=== PATIENT | female | born 1940 | race Caucasian/White ===

== ENCOUNTER 2023-04-21 16:48 | Emergency (ER) | payer OTHER ==
[~2023-04-21] VITALS: Ht 165.1 cm; Wt 82.0 kg
[2023-04-21 20:40] LABS: Basophils # (auto) 0.1 10 ^3/uL (0-0.2); Eosinophils # (auto) 0.1 10 ^3/uL (0-0.8); Eosinophils % (auto) 0.7 % (0.0-7.0); Hematocrit 43.1 % (36.0-46.0); Lymphocytes # (auto) 1.3 10 ^3/uL (0.4-5.4); Lymphocytes % (auto) 15.4 % (10.0-50.0); Mean Corpuscular Hgb Conc. 32.5 g/dL (32.0-36.0); Mean Corpuscular Volume 92.2 fL (80.0-100.0); Monocytes # (auto) 0.9 10 ^3/uL (0-1.3); Monocytes % (auto) 10.9 % (0.0-12.0); Neutrophils # (auto) 6.2 10 ^3/uL (1.6-8.6); Nucleated Red Blood Cells % 0.1 %; Red Blood Cells 4.68 10^6/uL (4.0-5.20); Red Cell Distribution Width 15.5 % (11.8-14.3); White Blood Cell 8.7 10^3/uL (4.4-10.8)
[2023-04-21 20:43] LABS: Chloride 110 mmol/L (98-107); Potassium 3.7 mmol/L (3.5-5.1); Sodium 139 mmol/L (136-145)
[2023-04-21 20:44] LABS: Anion Gap 7 (5-15); Carbon Dioxide 22 mmol/L (20-30)
[2023-04-21 20:49] LABS: Glucose 94 mg/dL (74-106)
[2023-04-21 21:11] LABS: BUN/Creatinine Ratio 10.3 (10.0-20.0); Blood Urea Nitrogen 10 mg/dL (9-23)
[2023-04-21] MEDS: IOHEXOL 350 MG/ML 100ML IJ ONE (21:15)
[2023-04-21] MEDS ORDERED: DIPH2.5T73 PO (21:18)
[2023-04-21] MEDS: SODIUM CHLORIDE 0.9% 500 ML IV ONE (21:19)
[2023-04-21 21:36] VITALS: BP 136/78; TEMP 97.8
[2023-04-21 21:37] VITALS: PULSE 96; RESP 16; O2SAT 97
== END 2023-04-21 22:15 | disposition home or self-care (01) ==
LOC: ER 16:48 → EDBD 16:48 → ER 22:15
DX: R19.7 Diarrhea, unspecified (principal); I10 Essential (primary) hypertension; I25.2 Old myocardial infarction; I48.91 Unspecified atrial fibrillation; E03.9 Hypothyroidism, unspecified; Z88.1 Allergy status to other antibiotic agents; Z88.2 Allergy status to sulfonamides
CPT/HCPCS: 36415; 74177; 80048; 85025; 99285; Q9967